=== PATIENT | male | born 1995 | race Caucasian/White ===

== ENCOUNTER 2016-09-08 00:09 | Emergency (ER) | payer BC ==
[~2016-09-08] VITALS: Ht 180.3 cm; Wt 75.5 kg
[2016-09-08] MEDS ORDERED: AUGMENTIN875 MG PO (00:31)
[2016-09-08 00:39] VITALS: BP 127/69
== END 2016-09-08 00:53 | disposition home or self-care (01) ==
LOC: EME 00:09
DX: S61.451A Open bite of right hand, initial encounter (principal); W55.01XA Bitten by cat, initial encounter
CPT/HCPCS: 99281; 99284